=== PATIENT | female | born 1945 | race Caucasian/White ===

== ENCOUNTER → 2017-04-25 15:08 | Outpatient (CLI) | payer MEDICARE, SELFPAY ==
[2017-04-25 17:48] LABS: Absolute Lymphocyte Count 2.64 X10^3/ul (0.83-4.51); Absolute Neutrophil Count 7.4 X10^3/uL (2.0-7.7); Basophil# 0.06 X10^3/uL; Basophil% 0.5 % (0-1); Eosinophil# 0.18 X10^3/uL; Eosinophils% 1.6 % (0-5); Hematocrit 49.8 % (37-47); Hemoglobin 16.9 g/dl (12.0-15.0); Lymphocyte # 2.64 X10^3/ul (4.0); Lymphocyte % 24.2 % (19-41); Mean Corp Hgb Conc 33.9 g/gl (32-36); Mean Corpuscular Hgb 30.5 pg (27.0-32.0); Mean Corpuscular Volume 89.7 fL (81-99); Mean Platelet Vol. 11.6 fl (6.2-12.0); Monocyte# 0.66 X10^3/uL; Neutrophil # 7.35 X10^3/uL (2.7-7.7); Neutrophil % 67.4 % (47-70); Platelet Count 265 K/mm3 (150-450); RBC Distribution Width CV 12.8 % (11.6-14.6); RBC Distribution Width SD 42.1 fl (35.1-43.9); Red Blood Count 5.55 M/mm3 (4.2-5.4); White Blood Count 10.9 K/mm3 (4.4-11.0)
[2017-04-25 17:57] LABS: POSITIVE COUNT NO; POSITIVE DIFFERENTIAL NO; POSITIVE MORPHOLOGY NO
[2017-04-25 18:06] LABS: ALB/GLOB Ratio 0.9 RATIO (0.9-2.4); AST(SGOT) 16 U/L (15-37); Alanine Aminotransfer ALT/SGPT 20 U/L (13-56); Albumin, Serum 3.7 g/dL (3.2-5.0); Alkaline Phosphatase 63 U/L (45-117); Anion Gap 10 (5-15); BUN 22 mg/dL (7-18); BUN/Creat Ratio 26.3 RATIO (10-20); Calcium,Total 9.7 mg/dL (8.5-10.1); Chloride 104 mmol/L (98-107); Creatinine, Serum 0.84 mg/dL (0.55-1.02); EST Glomerular Filtration Rate 71 mL/min (>60); Est Glom Filt Rate - Afr Amer 86 mL/min (>60); Glucose 94 mg/dL (74-106); Potassium 3.1 mmol/L (3.5-5.1); Protein, Total 7.7 g/dL (6.4-8.2); Sodium Level 141 mmol/L (136-145); Thyroid Stim Hormone (TSH) 0.61 uIU/mL (0.358-3.74)
== END ==
PROVIDERS: Family Provider Family Medicine; PCP Family Medicine; Visit Provider Family Medicine
DX: I10 Essential (primary) hypertension (principal); E87.6 Hypokalemia
CPT/HCPCS: 36415; 80053; 84443; 85025

== ENCOUNTER → 2017-06-06 14:23 | Outpatient (CLI) | payer MEDICARE, SELFPAY ==
[2017-06-06 18:25] LABS: Anion Gap 8 (5-15); BUN 18 mg/dL (7-18); BUN/Creat Ratio 25.1 RATIO (10-20); Calcium,Total 9.5 mg/dL (8.5-10.1); Chloride 103 mmol/L (98-107); Creatinine, Serum 0.72 mg/dL (0.55-1.02); EST Glomerular Filtration Rate 86 mL/min (>60); Est Glom Filt Rate - Afr Amer 104 mL/min (>60); Glucose 85 mg/dL (74-106); Potassium 3.3 mmol/L (3.5-5.1); Sodium Level 140 mmol/L (136-145)
[2017-06-06 19:14] LABS: Absolute Lymphocyte Count 2.85 X10^3/ul (0.83-4.51); Absolute Neutrophil Count 5.6 X10^3/uL (2.0-7.7); Basophil# 0.04 X10^3/uL; Basophil% 0.4 % (0-1); Eosinophil# 0.16 X10^3/uL; Eosinophils% 1.7 % (0-5); Hematocrit 50.3 % (37-47); Hemoglobin 16.5 g/dl (12.0-15.0); Lymphocyte # 2.85 X10^3/ul (4.0); Lymphocyte % 30.7 % (19-41); Mean Corp Hgb Conc 32.8 g/gl (32-36); Mean Corpuscular Hgb 30.1 pg (27.0-32.0); Mean Corpuscular Volume 91.8 fL (81-99); Mean Platelet Vol. 11.3 fl (6.2-12.0); Monocyte# 0.66 X10^3/uL; Monocyte% 7.1 % (0-10); Neutrophil # 5.55 X10^3/uL (2.7-7.7); Neutrophil % 59.9 % (47-70); Platelet Count 272 K/mm3 (150-450); RBC Distribution Width CV 13.3 % (11.6-14.6); RBC Distribution Width SD 44.2 fl (35.1-43.9); Red Blood Count 5.48 M/mm3 (4.2-5.4); White Blood Count 9.3 K/mm3 (4.4-11.0)
[2017-06-06 19:25] LABS: POSITIVE COUNT NO; POSITIVE DIFFERENTIAL NO; POSITIVE MORPHOLOGY NO
[2017-06-07 10:03] LABS: Magnesium 1.9 mg/dL (1.6-2.6)
== END ==
PROVIDERS: Family Provider Family Medicine; PCP Family Medicine; Visit Provider Family Medicine
DX: E87.6 Hypokalemia (principal); I10 Essential (primary) hypertension; D75.1 Secondary polycythemia
CPT/HCPCS: 36415; 80048; 83735; 85025

== ENCOUNTER 2017-06-17 08:35 | Day surgery (SDC) | payer MEDICARE, SELFPAY ==
--- NOTE | 2017-06-17 | COLBX_PTH ---
PATIENT: ALY OLSON LOC: EN U#:[id number] AGE/SX: 71/F ROOM: RE06/17/[address]: Dr. Emmett Mckeon MD : 1945 BED: DIS: 06/17/2017 SPEC #: [id number] RECD: 06/17/17 14:31 STATUS: FARRAH CHILO #: [id number] DANNY: 06/17/17 00:[address]: Emmett Mckeon DEPT: SURGICAL PATHOLOGY RECD BY: Tyron Gusman ENTERED: 06/17/17 14:32 SP TYPE: COLON BX OTHR DR: Dr. Chance Desouza MD Tissues: Sigmoid colon biopsy Procedures: Surgery Specimen Level IV HEADER OPERATION: Colonoscopy PRE-OP DIAGNOSIS: Screening TISSUE SUBMITTED: Random polyp biopsies sigmoid and rectum MICROSCOPIC DIAGNOSIS Sigmoid and rectal polyps, biopsy: Fragments of hyperplastic polyp. AM:andra 06/20/17 MICROSCOPIC DESCRIPTION Slides are reviewed. GROSS DESCRIPTION Received in fixative is one container labeled with the patient's name and designated random polyp biopsy, sigmoid and rectum. The specimen consists of two irregular fragments of light pedraza soft tissue that in aggregate measure 0.5 x 0.3 x 0.1 cm. The specimen is totally submitted in one cassette. / SJ:andra 06/17/17 TC:5 CPT: 36255
[2017-06-17 09:05] VITALS: BP 139/84; PULSE 78; RESP 18; TEMP 36.6; O2SAT 97; BMI 29.7
--- NOTE | 2017-06-17 10:34 | HP.PCM_ITS ---
Past Medical/Surgical History - Planned Operation Planned Operative Procedure/s: COLONOSCOPY Date of Operative Procedure: 06/17/17 Permit Signed: No S.O.S: No - Previous Hospitalizations/Surgeries HX Hospitalizations: Yes HX of Surgeries: HYSTERECTOMY. FOREIGN OBJECT REMOVED FROM LEG CHILD. CARPAL TUNNEL MOO. VAGINAL CHILDBIRTH X 1 Any Problems With Anesthesia: No You/Your Family Experience Fever (Hyperthermia) With Anes: No Cholinesterase deficiency: No - Cardiovascular Hx Chest Pain within Last 2 months: No Hx of Irregular Heartbeat and/or Afib: No Hx Heart Attack: No Hx Congestive Heart Failure: No Hx Rheumatic Fever: No Hx Hypertension: Yes - DX 90'S ON MEDS Hx Internal Defibrillator: No Hx Pacemaker: No Hx Cardiac Catheterization: No Hx Cardiac Surgery/Stents/Etc.: No Hx Stress Test: No HX Edema: No Hx Pain in Legs when Walking/Leg Cramps: No - Respiratory Chronic Cough: No HX of Shortness of Breath: No Hoarseness: No Hx Chronic Obstructive Pulmonary Disease (COPD): No Hx Asthma: No Hx Emphysema: No Hx Sleep Apnea: No CPAP: No BIPAP: No Hx Respiratory Tract Infection/Cold (presently): No Do You Snore Loudly (louder than talking or can be heard): Yes Do You Often Feel Tired/ Fatigued/ Sleepy Dring Daytime?: Yes Has Anyone Observed You Stop Breathing During Sleep?: No Result (for STOP score): Positive Hx Smoking: Yes - 1/2PPD Smoking Status: Current every day smoker - Gastrointestinal Hx Gastroesophageal Reflux: Yes - OCCASIONAL, TAKES TUMS PRN Controlled With Meds: No Hx Gastrointestinal Disorders: No Hx Gastrointestinal Bleed: No Hx Ulcer: No Hx Hiatal Hernia: No Difficulty Chewing/Swallowing: No Recent Onset of Swallowing Problems: No Special diet followed at home: No Hx Unplanned Weight Loss of 20#: No HX Unplanned Weight Gain of 20#: No - Neurological Hx Seizures: No HX Syncope/Blackout Spells/Unconsciousness: No Hx CVA/Stroke: No Hx Transient Ischemic Attacks (TIA): No Hx Multiple Sclerosis: No Hx Parkinson's Disease: No Hx Head/Neck Injury: Yes - OCCASINAL NECK PAIN Hx Headaches: No Hx Back Injury/Pain: Yes - OCC LOWER BACK PAIN Recent Onset of Speech Difficulty: No Restless Legs: No Does patient have nerve stimulator: No Patient instructed to have device shut off: No Rep notified?: No - Blood Disorder Hx Leukemia: No Bleeding Tendencies: No Hx Deep Vein Thrombosis: No Hx High Cholesterol: Yes - DOESN' T TOLERATE STATINS Blood Transmitted Disease: No Hx Hepatitis: No Hx Cirrhosis: No Hx Anemia: No Hx Blood Disorders: No - Reproduction : No Is Patient Lactating: No Hx Hysterectomy: Yes Hx Tubal Ligation: No Are You Post Menopause: Yes - Genitourinary Hx Renal Disease: No - Musculoskeletal Hx Arthritis: Yes Hx Rheumatoid Arthritis: No Hx Gout: No Recent Onset of an Orthopedic Problem: No - Endocrine Hx Diabetes: No Thyroid Disease: No Hx Steroid Therapy: Yes - UNCERTAIN TIME - Psycho/Social Hx Substance Use: No Hx Alcohol Use: No Hx Anxiety: Yes - ON MED Hx Depression: Yes Mental Illness: No Hx Dementia: No - Miscellaneous Hx Cancer: Yes - BREAST 2013 Recent Exposure to Contagious Disease: No Active MRSA: No Hx of C-Diff: No Any Loose Teeth: No Allergies doxycycline calcium [From Vibramycin] Allergy (Verified 03/26/13 14:20) HEART FLUTTERS doxycycline monohydrate [From Vibramycin] Allergy (Verified 03/26/13 14:20) Other atorvastatin calcium [From Lipitor] Adverse Reaction (Verified 03/26/13 14:20) WEAK MUSCLES fluvastatin sodium [From Lescol] Adverse Reaction (Verified 03/26/13 14:20) WEAK MUSCLES metoprolol Adverse Reaction (Verified 03/26/13 14:20) DOESN'T WORK simvastatin [From Zocor] Adverse Reaction (Verified 03/26/13 14:20) MUSLCE WEAKNESS DUST Allergy (Uncoded 03/26/13 14:20) SNEEZE WHEEZE ENVIRONMENTAL Allergy (Uncoded 03/26/13 14:20) SNEEZE WHEEZE MOLD Allergy (Uncoded 03/26/13 14:20) SNEEZE WHEEZE TREES Allergy (Uncoded 03/26/13 14:20) SNEEZE WHEAT Home Medications Medication Instructions Recorded Paroxetine HCl 20 mg PO QHS 02/19/13 Potassium Chloride [K-Dur] 20 meq PO DAILY 02/19/13 Triamterene/Hydrochlorothiazid 1 tab PO DAILY 02/19/13 [Triamterene-Hctz 37.5-25 mg Cp] Calcium Carbonate [Tums] 500 mg PO DAILY PRN PRN 03/26/13 Aspirin [Aspirin, Baby] 81 mg PO DAILY@0800 06/14/17 buPROPion SR [Wellbutrin SR (150mg 150 mg PO BID 06/14/17 tablets)] - Discharge Is Pt Admitted From a Half-Way, or a Custodial: No Who Depends On You At Home: LIVES ALONE After D/C, Where Do you Plan to Go: Return Home - From the PAT History Number of Risk Factors: 4 - Physical Exam General: Alert, Oriented x3, Cooperative Lungs: Normal air movement Cardiovascular: Regular rate, Regular Rhythm Abdomen: Soft, Non Tender, Non-Distended Vital Signs Temp Pulse Resp BP Pulse Ox 98 F 78 18 139/84 H 97 06/17/17 09:05 06/17/17 09:05 06/17/17 09:05 06/17/17 09:05 06/17/17 09:05 Oxygen Delivery Method Room Air Weight: 173 lb 8.061 oz Body Mass Index (BMI) 29.7 Assessment/Plan 71-year-old female screening colonoscopy 1. The patient reports that her last colonoscopy was [address] Mccauley. She reports that he did find a polyp at that time and recommended repeat colonoscopy in 3 years. She is not having any abdominal pain or blood in her stool this time. No inadvertent weight loss. She has no family history of colon cancer. 2. I explained endoscopy in detail to the patient. I explained the risks including but not limited to stroke or heart attack with anesthesia, perforation of the GI tract, bleeding, infection. I explained that any of these could necessitate further emergency surgery. The patient understands and all questions were answered sufficiently. The patient wishes to proceed with procedure. Emmett Mckeon MD Pager: [facility] [address] [place] [address], [address] [place] [address] Office: Surgery Risks - Colonoscopy Risks Include but are not Limited To: Risks include but are not limited to: Bleeding, perforation requiring further surgery, inability to complete colonoscopy requiring barium enema.
[2017-06-17 11:11] VITALS: BP 119/56; BP 139/84; PULSE 63; RESP 14; TEMP 36.3; O2SAT 93
--- NOTE | 2017-06-17 11:13 | PCM.OPRPT ---
Problem List (1) History of colon polyps Status: Acute Report of Operation Date of Procedure: 06/17/17 Pre-Operative Diagnosis: Personal history of colon polyp Post-Operative Diagnosis: Multiple polyps in the sigmoid and rectum Surgery/Procedure Performed:: Colonoscopy with biopsies Description of Surgical Findings:: The patient had multiple hyperplastic appearing polyps in the sigmoid and rectum. These number over 20 but not over 100. Specimen's removed: Biopsies of several the sigmoid and rectal polyps Description of Procedure: The major risks and benefits associated with the procedure were explained to the patient in detail. The patient verbalized understanding and agreement with the same. The patient was brought to the endoscopy suite. After adequate sedation was achieved, the patient was placed in the left lateral decubitus position and a digital rectal exam was performed. This examination was within normal limits. A well-lubricated colonoscope was then inserted into the rectum and advanced under direct visualization to the level of the cecum. The bowel prep was good. The cecum was identified by both visual and anatomic landmarks. A photograph was taken of the end of the cecum. The scope was then fully withdrawn while examining the color, texture, anatomy and integrity of the mucosa from the cecum to the anal canal. The findings were consistent with normal colonic mucosa in the proximal colon. In the sigmoid and rectum there were multiple hyperplastic appearing polyps. There were easily over 20 polyps in the section of the colon. I do not believe that they numbered over 100. Several polyps were biopsied with cold forceps and sent for pathology. These polyps all appeared similar in size and appearance. None of them stuck out as larger or more malignant-looking than the rest. Over 6 minutes were taken to examine the colonic mucosa. Upon reaching the rectum the scope was retroflexed to examine the distal rectal vault. There were also polyps in the distal rectum. The scope was then straightened and was completely retrieved upon exiting the anal canal and the procedure was terminated. The patient was then transferred to the recovery room in stable condition. Recommendations for follow up: Dependent on pathology but no more than 1 year. I will get her records from Dr. Mccauley, but I am concerned for a variant of FAP due to the amount of hyperplastic polyps in the sigmoid and rectum.
[2017-06-17 11:16] VITALS: BP 112/60; BP 139/84; PULSE 63; RESP 16; O2SAT 92
[2017-06-17 11:20] VITALS: BP 114/65; BP 139/84; PULSE 62; RESP 16; O2SAT 96
[2017-06-17 11:30] VITALS: BP 137/64; BP 139/84; PULSE 63; RESP 16; TEMP 36.5; O2SAT 94
[2017-06-17 11:57] VITALS: BP 139/84
== END 2017-06-17 12:24 | disposition home or self-care (01) ==
LOC: EN 08:36 → AC 08:38
PROVIDERS: Family Provider Family Medicine; PCP Family Medicine; Visit Provider Surgery
PROC: 0DJD8ZZ Inspection of Lower Intestinal Tract, Via Natural or Artificial Opening Endoscopic (ICD-10-PCS; CPT 45378; principal; 2017-06-17 09:55)
DX: K62.1 Rectal polyp (principal); K63.5 Polyp of colon; I10 Essential (primary) hypertension; F41.9 Anxiety disorder, unspecified; F17.210 Nicotine dependence, cigarettes, uncomplicated; Z85.3 Personal history of malignant neoplasm of breast; Z79.899 Other long term (current) drug therapy; Z79.82 Long term (current) use of aspirin; Z86.010 Personal history of colon polyps
CPT/HCPCS: 45380; 88305; J7120

== ENCOUNTER → 2017-07-22 14:24 | Outpatient (CLI) | payer MEDICARE, SELFPAY ==
[2017-07-22 15:56] LABS: Anion Gap 9 (5-15); BUN 17 mg/dL (7-18); BUN/Creat Ratio 16.5 RATIO (10-20); Calcium,Total 9.8 mg/dL (8.5-10.1); Chloride 103 mmol/L (98-107); Creatinine, Serum 1.03 mg/dL (0.55-1.02); EST Glomerular Filtration Rate 56 mL/min (>60); Est Glom Filt Rate - Afr Amer 68 mL/min (>60); Glucose 91 mg/dL (74-106); Potassium 3.3 mmol/L (3.5-5.1); Sodium Level 141 mmol/L (136-145)
== END ==
PROVIDERS: Visit Provider Family Medicine
DX: E87.6 Hypokalemia (principal)
CPT/HCPCS: 36415; 80048

== ENCOUNTER → 2018-07-03 14:40 | Outpatient (CLI) | payer MEDICARE, SELFPAY ==
[2018-07-03 17:54] LABS: Absolute Lymphocyte Count 2.81 X10^3/ul (0.83-4.51); Absolute Neutrophil Count 5.5 X10^3/uL (2.0-7.7); Basophil# 0.03 X10^3/uL; Basophil% 0.3 % (0-1); Eosinophil# 0.18 X10^3/uL; Eosinophils% 1.9 % (0-5); Hematocrit 48.7 % (37-47); Hemoglobin 16.4 g/dl (12.0-15.0); Lymphocyte # 2.81 X10^3/ul (4.0); Lymphocyte % 30.3 % (19-41); Mean Corp Hgb Conc 33.7 g/gl (32-36); Mean Corpuscular Hgb 29.8 pg (27.0-32.0); Mean Corpuscular Volume 88.4 fL (81-99); Mean Platelet Vol. 11.8 fl (6.2-12.0); Monocyte# 0.69 X10^3/uL; Monocyte% 7.5 % (0-10); Neutrophil # 5.52 X10^3/uL (2.7-7.7); Neutrophil % 59.7 % (47-70); Platelet Count 264 K/mm3 (150-450); RBC Distribution Width CV 13.6 % (11.6-14.6); RBC Distribution Width SD 43.7 fl (35.1-43.9); Red Blood Count 5.51 M/mm3 (4.2-5.4); White Blood Count 9.3 K/mm3 (4.4-11.0)
[2018-07-03 17:55] LABS: POSITIVE COUNT NO; POSITIVE DIFFERENTIAL NO; POSITIVE MORPHOLOGY NO
[2018-07-03 18:28] LABS: ALB/GLOB Ratio 1.1 RATIO (0.9-2.4); AST(SGOT) 21 U/L (15-37); Alanine Aminotransfer ALT/SGPT 22 U/L (13-56); Albumin, Serum 3.9 g/dL (3.2-5.0); Alkaline Phosphatase 68 U/L (45-117); Anion Gap 11 (5-15); BUN 17 mg/dL (7-18); BUN/Creat Ratio 22.1 RATIO (10-20); Calcium,Total 9.6 mg/dL (8.5-10.1); Chloride 104 mmol/L (98-107); Cholesterol 267 mg/dL (200); Creatinine, Serum 0.77 mg/dL (0.55-1.02); EST Glomerular Filtration Rate 78 mL/min (>60); Est Glom Filt Rate - Afr Amer 95 mL/min (>60); Globulin 3.7 g/dL (2.2-4.2); Glucose 93 mg/dL (74-106); High Density Lipoprotein 38 mg/dL; Potassium 3.1 mmol/L (3.5-5.1); Protein, Total 7.6 g/dL (6.4-8.2); Sodium Level 140 mmol/L (136-145); T4 Free Direct 1.14 ng/dL (0.76-1.46); Thyroid Stim Hormone (TSH) 0.73 uIU/mL (0.358-3.74); Triglycerides 218 mg/dL; Very Low Density Lipoprotein 44 mg/dL (5-40)
== END ==
PROVIDERS: Family Provider Family Medicine; PCP Family Medicine; Visit Provider Family Medicine
DX: F32.9 Major depressive disorder, single episode, unspecified (principal); I10 Essential (primary) hypertension; R53.83 Other fatigue
CPT/HCPCS: 36415; 80053; 80061; 84439; 84443; 85025

== ENCOUNTER → 2018-09-08 15:01 | Outpatient (CLI) | payer MEDICARE, SELFPAY ==
--- NOTE | 2018-09-08 15:15 | BI_ITS ---
MAMMOGRAPHY - UNILATERAL SCREENING: LEFT BREAST REASON FOR EXAM: Female, 72 years old. Routine annual screening examination (unilateral). PERTINENT HISTORY: Personal history of breast cancer. Prior right mastectomy. TECHNIQUE: Digital unilateral breast sergio (3D mammographic acquisition) in the CC and MLO projections. 2-D mediolateral oblique (MLO) and craniocaudad (CC) views of both breasts were obtained. CAD: Full Field Digital Mammography with Computer Added Detection was performed. COMPARISON: Comparison is made with prior examination dated May 12, 2016. FINDINGS: Breast Composition: There are scattered areas of fibroglandular density. There are no dominant masses or suspicious calcifications. Stable appearance of the left axillary lymph nodes. No other significant abnormalities are identified. There has been no significant change since the prior study. BI/SCREEN MAMM (CAD) W/SERGIO UNI L IMPRESSION: Stable unilateral screening mammogram. Yearly follow-up mammogram recommended. (A) ASSESSMENT CATEGORY: Approximately 10% of breast cancers are not detected by mammography. A normal mammogram should not delay biopsy of a clinically suspicious abnormality. [id number] Electronically Signed: Ashok Roblero, at 8:13 EDT , Service support ,
== END ==
PROVIDERS: Family Provider Family Medicine; PCP Family Medicine; Referring Provider Family Medicine
DX: Z12.31 Encounter for screening mammogram for malignant neoplasm of breast (principal); Z85.3 Personal history of malignant neoplasm of breast; Z90.11 Acquired absence of right breast and nipple
CPT/HCPCS: 77061; 77067; G0279

== ENCOUNTER 2018-09-21 06:28 | Day surgery (SDC) | payer MEDICARE, SELFPAY ==
[2018-09-21 06:49] VITALS: BP 133/55; PULSE 78; RESP 18; TEMP 36.7; O2SAT 98; BMI 30.7
--- NOTE | 2018-09-21 07:23 | H&P.OPEN ---
History of Present Illness Date of Admission: 09/21/18 The patient is a 72 year old F here for surveillance colonoscopy. The patient had a colonoscopy a little over a year ago and over 20 hyperplastic polyps were found in the sigmoid and rectum. Several of these were biopsied and came back as hyperplastic polyps. She does not note any abdominal pain or blood in her stool. Past Medical/Surgical History - Planned Operation Planned Operative Procedure/s: cscope open access Date of Operative Procedure: 09/21/18 Permit Signed: No S.O.S: No Is This Patient Having a Total Joint: No - Previous Hospitalizations/Surgeries HX Hospitalizations: No HX of Surgeries: HYSTERECTOMY. FOREIGN OBJECT REMOVED FROM LEG CHILD. CARPAL TUNNEL MOO. VAGINAL CHILDBIRTH X 1. right mastectomy. cscope 2018. cataract right Any Problems With Anesthesia: Yes - woke up during cscope in the past You/Your Family Experience Fever (Hyperthermia) With Anes: No Cholinesterase deficiency: No - Cardiovascular Hx Chest Pain within Last 2 months: No Hx of Irregular Heartbeat and/or Afib: No Hx Heart Attack: No Hx Congestive Heart Failure: No Hx Rheumatic Fever: No Hx Hypertension: Yes - controlled with med Hx Internal Defibrillator: No Hx Pacemaker: No Hx Cardiac Catheterization: No Hx Cardiac Surgery/Stents/Etc.: No Hx Stress Test: No HX Edema: No Hx Pain in Legs when Walking/Leg Cramps: Yes - left leg pain/cramps prn - Respiratory Chronic Cough: No HX of Shortness of Breath: No Hoarseness: No Hx Chronic Obstructive Pulmonary Disease (COPD): No Hx Asthma: No Hx Emphysema: No Hx Sleep Apnea: No CPAP: No BIPAP: No Hx Oxygen Use at Home: No Hx Respiratory Tract Infection/Cold (presently): No Do You Snore Loudly (louder than talking or can be heard): No Do You Often Feel Tired/ Fatigued/ Sleepy Dring Daytime?: No Has Anyone Observed You Stop Breathing During Sleep?: No Result (for STOP score): Negative Hx Smoking: Yes - 1/2PPD Smoking Status: Current every day smoker - Gastrointestinal Hx Gastroesophageal Reflux: Yes - OCCASIONAL, TAKES TUMS PRN Controlled With Meds: No Hx Gastrointestinal Disorders: No Hx Gastrointestinal Bleed: No Hx Ulcer: No Hx Hiatal Hernia: No Difficulty Chewing/Swallowing: No Recent Onset of Swallowing Problems: No Special diet followed at home: No Hx Unplanned Weight Loss of 20#: No HX Unplanned Weight Gain of 20#: No - Neurological Hx Seizures: No HX Syncope/Blackout Spells/Unconsciousness: No Hx CVA/Stroke: No - eye stroke right eye Hx Transient Ischemic Attacks (TIA): No Hx Multiple Sclerosis: No Hx Parkinson's Disease: No Hx Head/Neck Injury: Yes - chronic neck pain/fibromyalgia Hx Headaches: No Hx Back Injury/Pain: Yes - back pain from fall 1 yr ago Recent Onset of Speech Difficulty: No Restless Legs: No Does patient have nerve stimulator: No Patient instructed to have device shut off: No Rep notified?: No - Blood Disorder Hx Leukemia: No Bleeding Tendencies: No Hx Deep Vein Thrombosis: No Hx High Cholesterol: Yes - in the past Blood Transmitted Disease: No Hx Hepatitis: No Hx Cirrhosis: No Hx Anemia: No Hx Blood Disorders: No - Reproduction Is Patient Lactating: No Hx Hysterectomy: Yes Hx Tubal Ligation: No Are You Post Menopause: Yes - Genitourinary Hx Renal Disease: No - kidney stone/incontinence - Musculoskeletal Hx Arthritis: Yes Hx Rheumatoid Arthritis: No Hx Gout: No Recent Onset of an Orthopedic Problem: No - Endocrine Hx Diabetes: No Thyroid Disease: No Hx Steroid Therapy: No - . - Psycho/Social Hx Substance Use: No Hx Alcohol Use: No Hx Anxiety: Yes - ON MED Hx Depression: Yes - on med Mental Illness: No Hx Dementia: No - Miscellaneous Hx Cancer: Yes - breast/mastectomy Recent Exposure to Contagious Disease: No Active MRSA: No Hx of C-Diff: No Any Loose Teeth: No Allergies doxycycline calcium [From Vibramycin] Allergy (Verified 09/20/18 10:39) HEART FLUTTERS doxycycline monohydrate [From Vibramycin] Allergy (Verified 09/20/18 10:39) Other atorvastatin calcium [From Lipitor] Adverse Reaction (Verified 09/20/18 10:39) WEAK MUSCLES fluvastatin sodium [From Lescol] Adverse Reaction (Verified 09/20/18 10:39) WEAK MUSCLES metoprolol Adverse Reaction (Verified 09/20/18 10:39) DOESN'T WORK simvastatin [From Zocor] Adverse Reaction (Verified 09/20/18 10:39) MUSLCE WEAKNESS DUST Allergy (Uncoded 09/20/18 10:39) SNEEZE WHEEZE ENVIRONMENTAL Allergy (Uncoded 09/20/18 10:39) SNEEZE WHEEZE MOLD Allergy (Uncoded 09/20/18 10:39) SNEEZE WHEEZE TREES Allergy (Uncoded 09/20/18 10:39) SNEEZE WHEAT - Discharge Is Pt Admitted From a Care Home, or a Long Term: No Who Could Help: family After D/C, Where Do you Plan to Go: Return Home - From the PAT History Number of Risk Factors: 5 - Physical Exam General: Alert, Oriented x3 Lungs: Normal air movement Cardiovascular: Regular rate, Regular Rhythm Abdomen: Soft, Non Tender, Non-Distended Vital Signs Temp Pulse Resp BP Pulse Ox 98.0 F 78 18 133/55 H 98 09/21/18 06:49 09/21/18 06:49 09/21/18 06:49 09/21/18 06:49 09/21/18 06:49 Oxygen Delivery Method Room Air Weight: 173 lb 8.061 oz Body Mass Index (BMI) 30.7 Assessment/Plan All Active Problems History of colon polyps (Acute) 72-year-old female with multiple rectum and sigmoid polyps 1. There was concern for a variant of FAP as the patient had over 20 polyps in her sigmoid and rectum. Was recommended that she repeat colonoscopy in a year in accordance to FAP guidelines. Her biopsies a year ago came back as hyperplastic polyps. 2. I explained endoscopy in detail to the patient. I explained the risks including but not limited to stroke or heart attack with anesthesia, perforation of the GI tract, bleeding, infection. I explained that any of these could necessitate further emergency surgery. The patient understands and all questions were answered sufficiently. The patient wishes to proceed with procedure. Emmett Mckeon MD Pager: [facility] [address] [place] [address], [address] [place] [address] Office: Surgery Risks - Colonoscopy Risks Include but are not Limited To: Risks include but are not limited to: Bleeding, perforation requiring further surgery, inability to complete colonoscopy requiring barium enema.
--- NOTE | 2018-09-21 07:30 | COLBX_PTH ---
PATIENT: ALY OLSON LOC: EN U#:[id number] AGE/SX: 72/F ROOM: RE09/21/[address]: Dr. Emmett Mckeon MD : 1945 BED: DIS: 09/21/2018 SPEC #: [id number] RECD: 09/21/18 08:25 STATUS: FARRAH CHILO #: [id number] DANNY: 09/21/18 07:[address]: Emmett Mckeon DEPT: SURGICAL PATHOLOGY RECD BY: Angel Boone ENTERED: 09/21/18 10:47 SP TYPE: COLON BX OTHR DR: Dr. Chance Desouza MD Tissues: Descending colon Procedures: Surgery Specimen Level IV HEADER OPERATION: Colonoscopy - open access (MAC) PRE-OP DIAGNOSIS: History of colon polyps TISSUE SUBMITTED: Descending colon polyp MICROSCOPIC DIAGNOSIS Descending colon polyp, biopsy: Hyperplastic polyp. AM:andra 09/22/18 MICROSCOPIC DESCRIPTION Slides are reviewed. GROSS DESCRIPTION Received in fixative is one container labeled with the patient's name and designated descending colon polyp. The specimen consists of one irregular fragment of light pedraza soft tissue that measures 0.4 x 0.3 x 0.1 cm. Multiple fragments of fecal material are also noted. The specimen is totally submitted in one cassette. / SJ:andra 09/21/18 TC:5 CPT: 43609
[2018-09-21 08:01] VITALS: BP 131/68; BP 133/55; PULSE 61; RESP 16; TEMP 36.3; O2SAT 96
--- NOTE | 2018-09-21 08:01 | OP.ENDO_ITS ---
09/21/2018 Chance Desouza Re : Colonoscopy procedure for Silvia Henry Dear Lyly This procedure was performed on August. My impressions and recommendations are as follows: Impressions : - One polyp in the rectum in the sigmoid colon in the descending colon, removed with a hot snare. Resected and retrieved. Recommendations : - Discharge patient to home. - Resume previous diet. - Continue present medications. - Resume aspirin at prior dose tomorrow. - Await pathology results. - Repeat colonoscopy in 5 years for surveillance of multiple polyps. My findings are described in the full procedure note, which is enclosed. If I can be of further assistance, please feel free to contact me at Doctor phone number(s): , Work: . Sincerely, Emmett Mckeon MD 09/21/2018 8:01:05 AM This report has been signed electronically.
[2018-09-21 08:05] VITALS: BP 133/55; BP 135/61; PULSE 63; RESP 16; O2SAT 94
[2018-09-21 08:11] VITALS: BP 133/55; BP 150/70; PULSE 67; RESP 16; O2SAT 95
[2018-09-21 08:18] VITALS: BP 133/55; BP 138/63; PULSE 65; RESP 16; TEMP 36.1; O2SAT 95
[2018-09-21 08:21] VITALS: BP 133/55
== END 2018-09-21 08:42 | disposition home or self-care (01) ==
LOC: EN 06:28 → AC 06:30
PROVIDERS: Family Provider Family Medicine; PCP Family Medicine; Referring Provider Family Medicine; Visit Provider Surgery
PROC: 0DJD8ZZ Inspection of Lower Intestinal Tract, Via Natural or Artificial Opening Endoscopic (ICD-10-PCS; CPT 45378; principal; 2018-09-21 07:25)
DX: Z12.11 Encounter for screening for malignant neoplasm of colon (principal); Z86.010 Personal history of colon polyps; K62.1 Rectal polyp; D12.5 Benign neoplasm of sigmoid colon; D12.4 Benign neoplasm of descending colon; F32.9 Major depressive disorder, single episode, unspecified; F41.9 Anxiety disorder, unspecified; E78.00 Pure hypercholesterolemia, unspecified; M79.7 Fibromyalgia; G89.29 Other chronic pain; F17.200 Nicotine dependence, unspecified, uncomplicated; I10 Essential (primary) hypertension; Z87.442 Personal history of urinary calculi
CPT/HCPCS: 45385; 88305; J7120

== ENCOUNTER → 2019-01-10 13:49 | Outpatient (CLI) | payer MEDICARE, SELFPAY ==
--- NOTE | 2019-01-10 14:16 | RAD_ITS ---
STUDY: X-RAY - LUMBAR SPINE REASON FOR EXAM: Female, 73 years old. Pain. TECHNIQUE: 5 view(s) of the lumbar spine were obtained. COMPARISON: None FINDINGS: Normal lumbar lordosis. There is no substantial scoliosis. There is minimal anterolisthesis of L4 on L5 (4.2 mm). There is multilevel endplate spondylosis of the lumbar vertebrae. There is mild, multi-level degenerative disc disease with multi-level disc space narrowing. There is no demonstrated fracture. There is no demonstrated spondylolysis of the pars interarticulares. Multilevel bilateral facet hypertrophic changes noted. There is atherosclerotic calcification of the abdominal aorta without a demonstrated aneurysm. RAD/L/S Spine Min 4 Views IMPRESSION: Multilevel spondylosis/degenerative disease with no acute fracture, spondylolisthesis or pars defect. Electronically Signed: Vivienne Headley MD at 1:30 EST , Service support ,
--- NOTE | 2019-01-10 14:16 | RAD_ITS ---
STUDY: X-RAY - THORACIC SPINE REASON FOR EXAM: Female, 73 years old. Pain. TECHNIQUE: 2 view(s) of the thoracic spine were obtained. COMPARISON: None. FINDINGS: Normal kyphosis of the thoracic spine. There is no substantial scoliosis. There is multilevel endplate spondylosis of the thoracic vertebrae. There is multilevel disc space narrowing of the thoracic spine. The soft tissue structures are unremarkable. RAD/Thoracic Spine 3 Views IMPRESSION: Spondylosis/degenerative disease with no acute fracture or subluxation. Electronically Signed: Vivienne Headley MD at 1:29 EST , Service support ,
[2019-01-10 15:37] LABS: Anion Gap 9 (5-15); BUN 14 mg/dL (7-18); BUN/Creat Ratio 15.7 RATIO (10-20); Calcium,Total 9.8 mg/dL (8.5-10.1); Chloride 102 mmol/L (98-107); Creatinine, Serum 0.89 mg/dL (0.55-1.02); EST Glomerular Filtration Rate 66 mL/min (>60); Est Glom Filt Rate - Afr Amer 80 mL/min (>60); Glucose 90 mg/dL (74-106); Magnesium 1.7 mg/dL (1.6-2.6); Potassium 2.9 mmol/L (3.5-5.1); Sodium Level 140 mmol/L (136-145)
== END ==
PROVIDERS: Family Provider Family Medicine; PCP Family Medicine; Referring Provider Family Medicine; Visit Provider Family Medicine
DX: E87.6 Hypokalemia (principal); M54.6 Pain in thoracic spine; M54.5 Low back pain
CPT/HCPCS: 36415; 72072; 72110; 80048; 83735

== ENCOUNTER → 2019-01-15 15:22 | Outpatient (CLI) | payer MEDICARE, SELFPAY ==
[2019-01-15 17:36] LABS: Anion Gap 5 (5-15); BUN 16 mg/dL (7-18); BUN/Creat Ratio 22.9 RATIO (10-20); Calcium,Total 9.3 mg/dL (8.5-10.1); Chloride 112 mmol/L (98-107); EST Glomerular Filtration Rate 88 mL/min (>60); Est Glom Filt Rate - Afr Amer 106 mL/min (>60); Glucose 77 mg/dL (74-106); Potassium 3.7 mmol/L (3.5-5.1); Sodium Level 143 mmol/L (136-145)
== END ==
PROVIDERS: Family Provider Family Medicine; PCP Family Medicine; Visit Provider Family Medicine
DX: I10 Essential (primary) hypertension (principal)
CPT/HCPCS: 36415; 80048

== ENCOUNTER → 2019-07-30 14:54 | Outpatient (CLI) | payer MEDICARE, SELFPAY ==
[2019-07-30 14:56] LABS: Bacteria 0 SEEN /hpf (None Seen); Mucous, Urine 0 SEEN /hpf (<or=2+)
[2019-07-30 16:24] LABS: Color, Urine Yellow (Yellow); Glucose, Dipstick Normal (Normal); Ketone-Dipstick Negative (Negative); Leukocyte Esterase-Dipstick 100 /ul (Negative); Nitrite-Dipstick Negative (Negative); Occult Blood-Urine 150 /ul (Negative); Protein-Dipstick 15 mg/dl (Negative); Specific Gravity, Urine 1.015 (1.002-1.030); Urine Bilirubin Dipstick Negative (Negative); Urine Clarity Sl. Cloudy (Clear); Urine Urobilinogen Normal (Normal); Urine pH 6.5 (5.0 - 8.0)
[2019-07-30 16:51] LABS: Red Blood Cells-Urine 10-25 SEEN /hpf (0-5); Squamous Epithelial Cells - UA 0-5 SEEN /hpf (5-10); White Blood Cells 25-50 SEEN /hpf (0-5)
== END ==
PROVIDERS: PCP Family Medicine; Visit Provider Family Medicine
DX: R30.0 Dysuria (principal)
CPT/HCPCS: 81001; 87077; 87086; 87088; 87186

== ENCOUNTER → 2020-01-14 10:44 | Outpatient (CLI) | payer MEDICARE, SELFPAY ==
[2020-01-14 12:36] LABS: Absolute Lymphocyte Count 2.21 X10^3/uL (0.83-4.51); Absolute Neutrophil Count 4.5 X10^3/uL (2.0-7.7); Basophil# 0.06 X10^3/uL; Basophil% 0.8 % (0-1); Eosinophil# 0.17 X10^3/uL; Eosinophils% 2.2 % (0-5); Hematocrit 46.8 % (37-47); Hemoglobin 15.4 g/dL (12.0-15.0); Lymphocyte # 2.21 X10^3/ul (4.0); Mean Corp Hgb Conc 32.9 g/dL (32-36); Mean Corpuscular Hgb 29.2 pg (27.0-32.0); Mean Corpuscular Volume 88.8 fL (81-99); Mean Platelet Vol. 11.1 fl (6.2-12.0); Monocyte# 0.65 X10^3/uL; Monocyte% 8.5 % (0-10); NRBC Flagged by Analyzer 0 % (0-5); Neutrophil # 4.49 X10^3/uL (2.7-7.7); Neutrophil % 59.1 % (47-70); Platelet Count 296 K/mm3 (150-450); RBC Distribution Width CV 12.8 % (11.6-14.6); RBC Distribution Width SD 41.4 fl (35.1-43.9); Red Blood Count 5.27 M/mm3 (4.2-5.4); White Blood Count 7.6 K/mm3 (4.4-11.0)
[2020-01-14 13:16] LABS: AST(SGOT) 14 U/L (15-37); Alanine Aminotransfer ALT/SGPT 18 U/L (13-56); Albumin, Serum 3.7 g/dL (3.2-5.0); Alkaline Phosphatase 95 U/L (45-117); Anion Gap 7 (5-15); BUN 16 mg/dL (7-18); BUN/Creat Ratio 21.9 RATIO (10-20); Calcium,Total 9.1 mg/dL (8.5-10.1); Chloride 107 mmol/L (98-107); Creatinine, Serum 0.73 mg/dL (0.55-1.02); EST Glomerular Filtration Rate 83 mL/min (>60); Est Glom Filt Rate - Afr Amer 100 mL/min (>60); Globulin 3.8 g/dL (2.2-4.2); Glucose 91 mg/dL (74-106); Potassium 3.5 mmol/L (3.5-5.1); Protein, Total 7.5 g/dL (6.4-8.2); Sodium Level 141 mmol/L (136-145); T4 Free Direct 1.12 ng/dL (0.76-1.46); Thyroid Stim Hormone (TSH) 0.75 uIU/mL (0.358-3.74)
== END ==
PROVIDERS: PCP Family Medicine; Visit Provider Family Medicine
DX: I10 Essential (primary) hypertension (principal); E87.6 Hypokalemia; M79.7 Fibromyalgia
CPT/HCPCS: 36415; 80053; 84439; 84443; 85025

== ENCOUNTER → 2020-05-13 10:16 | Outpatient (CLI) | payer MEDICARE, SELFPAY ==
--- NOTE | 2020-05-13 10:20 | RAD_ITS ---
STUDY: X-RAY - CERVICAL SPINE REASON FOR EXAM: Female, 74 years old. Radicular pain in the right arm TECHNIQUE: 5 view(s) of the cervical spine were obtained. COMPARISON: None FINDINGS: There are degenerative changes of the anterior atlantoaxial articulation. Normal odontoid process. There is straightening of the normal cervical lordosis. There is multi-level endplate spondylosis. There is multi-level degenerative disc disease with multilevel disc space narrowing. Normal visualized intervertebral neuroforamina. There is no evidence of acute fracture or loss of vertebral axial height.. There is maintenance of normal alignment The soft tissue structures are unremarkable. RAD/Cerv Spine 4 or 5 Views IMPRESSION: 1. Degenerative changes of the cervical spine without acute fracture or subluxation. 2. Straightened cervical lordosis. Muscular strain versus positional. Electronically Signed: Paco Key DO at 23:39 EDT Tel [phone], Service support ,
[2020-05-13 13:20] LABS: Hemoglobin A1c 5.4 % (3.8-5.6)
[2020-05-13 13:46] LABS: AST(SGOT) 22 U/L (15-37); Alanine Aminotransfer ALT/SGPT 28 U/L (13-56); Albumin, Serum 3.9 g/dL (3.2-5.0); Alkaline Phosphatase 97 U/L (45-117); Anion Gap 7 (5-15); BUN 11 mg/dL (7-18); CPK Total, Creatine Kinase 59 U/L (26-192); Calcium,Total 9.3 mg/dL (8.5-10.1); Chloride 107 mmol/L (98-107); Creatinine, Serum 0.79 mg/dL (0.55-1.02); EST Glomerular Filtration Rate 76 mL/min (>60); Est Glom Filt Rate - Afr Amer 92 mL/min (>60); Globulin 3.9 g/dL (2.2-4.2); Glucose 98 mg/dL (74-106); Potassium 3.1 mmol/L (3.5-5.1); Protein, Total 7.8 g/dL (6.4-8.2); Sodium Level 140 mmol/L (136-145); T4 Free Direct 1.18 ng/dL (0.76-1.46); Thyroid Stim Hormone (TSH) 1.08 uIU/mL (0.358-3.74)
== END ==
PROVIDERS: PCP Family Medicine; Referring Provider Family Medicine; Visit Provider Family Medicine
DX: I10 Essential (primary) hypertension (principal); E78.5 Hyperlipidemia, unspecified; E66.9 Obesity, unspecified; R73.01 Impaired fasting glucose; M54.12 Radiculopathy, cervical region
CPT/HCPCS: 36415; 72050; 80053; 82550; 83036; 84439; 84443

== ENCOUNTER → 2020-05-28 13:28 | Outpatient (CLI) | payer MEDICARE, SELFPAY ==
[2020-05-28 15:46] LABS: Anion Gap 3 (5-15); BUN 16 mg/dL (7-18); BUN/Creat Ratio 17.9 RATIO (10-20); Calcium,Total 9.3 mg/dL (8.5-10.1); Chloride 106 mmol/L (98-107); Creatinine, Serum 0.89 mg/dL (0.55-1.02); EST Glomerular Filtration Rate 66 mL/min (>60); Est Glom Filt Rate - Afr Amer 80 mL/min (>60); Glucose 177 mg/dL (74-106); Potassium 3.5 mmol/L (3.5-5.1); Sodium Level 139 mmol/L (136-145)
== END ==
PROVIDERS: PCP Family Medicine; Referring Provider Family Medicine; Visit Provider Family Medicine
DX: I10 Essential (primary) hypertension (principal)
CPT/HCPCS: 36415; 80048

== ENCOUNTER → 2020-09-30 17:43 | Outpatient (CLI) | payer MEDICARE, SELFPAY ==
[2020-09-30 19:17] LABS: Probe Check PASS; Specimen Processing Control PASS
== END ==
PROVIDERS: PCP Family Medicine; Visit Provider Family Medicine
DX: Z20.828 Contact with and (suspected) exposure to other viral communicable diseases (principal); R43.2 Parageusia
CPT/HCPCS: 87635; U0005; U0003

== ENCOUNTER 2021-06-01 14:08 | Outpatient (CLI) | payer MEDICARE, SELFPAY ==
--- NOTE | 2021-06-01 14:11 | BI_ITS ---
MAMMOGRAPHY - UNILATERAL SCREENING: LEFT BREAST REASON FOR EXAM: Female, 75 years old. Routine annual screening examination (unilateral). PERTINENT HISTORY: Personal history of breast cancer. Prior right mastectomy. TECHNIQUE: Digital unilateral breast sergio (3D mammographic acquisition) in the CC and MLO projections. 2-D mediolateral oblique (MLO) and craniocaudad (CC) views of both breasts were obtained. CAD: Full Field Digital Mammography with Computer Added Detection was performed. COMPARISON: Comparison is made with prior examination dated 09/08/2018. FINDINGS: Breast Composition: There are scattered areas of fibroglandular density. There are no dominant masses or suspicious calcifications. No other significant abnormalities are identified. There has been no significant change since the prior study. BI/SCREEN MAMM (CAD) W/SERGIO UNI L IMPRESSION: Stable unilateral screening mammogram. Yearly follow-up mammogram recommended. (A) ASSESSMENT CATEGORY: BIRADS Category 1: Negative. A letter regarding these results will be sent to the patient by the facility within 30 days. Approximately 10% of breast cancers are not detected by mammography. A normal mammogram should not delay biopsy of a clinically suspicious abnormality. [id number] Electronically Signed: Ashok Roblero MD at 15:25 EDT ,
== END 2021-06-01 23:59 | disposition home or self-care (01) ==
PROVIDERS: PCP Family Medicine; Visit Provider Family Medicine
DX: Z12.31 Encounter for screening mammogram for malignant neoplasm of breast (principal); Z85.3 Personal history of malignant neoplasm of breast; Z90.11 Acquired absence of right breast and nipple
CPT/HCPCS: 77063; 77067

== ENCOUNTER → 2022-04-13 | Outpatient (CLI) | payer MEDICARE, SELFPAY | END | disposition home or self-care (01) | LOC: LABSPEC 14:40 | PROVIDERS: PCP Family Medicine; Visit Provider Family Medicine | DX: N39.0 Urinary tract infection, site not specified (principal) | CPT/HCPCS: 87086; 87088; 87186 ==

== ENCOUNTER → 2022-06-09 | Outpatient (CLI) | payer MEDICARE, SELFPAY | END | disposition home or self-care (01) | PROVIDERS: PCP Family Medicine; Visit Provider Family Medicine | DX: N39.0 Urinary tract infection, site not specified (principal) | CPT/HCPCS: 87086 ==

== ENCOUNTER 2023-01-25 15:37 | Outpatient (CLI) | payer MEDICARE, SELFPAY ==
[2023-01-25 18:02] LABS: Vitamin D,25 Hydroxy 18.8 ng/mL
[2023-01-25 18:10] LABS: ALB/GLOB Ratio 0.9 RATIO (0.9-2.4); AST(SGOT) 16 U/L (15-37); Alanine Aminotransfer ALT/SGPT 24 U/L (13-56); Albumin, Serum 3.6 g/dL (3.2-5.0); Alkaline Phosphatase 87 U/L (45-117); Anion Gap 6 (5-15); BUN 13 mg/dL (7-18); BUN/Creat Ratio 15.3 RATIO (10-20); Calcium,Total 9.4 mg/dL (8.5-10.1); Chloride 107 mmol/L (98-107); Cholesterol 303 mg/dL (200); Creatinine, Serum 0.85 mg/dL (0.55-1.02); EST Glomerular Filtration Rate 69 mL/min (>60); Est Glom Filt Rate - Afr Amer 83 mL/min (>60); Glucose 94 mg/dL (74-106); High Density Lipoprotein 45 mg/dL; Protein, Total 7.6 g/dL (6.4-8.2); Sodium Level 140 mmol/L (136-145); Thyroid Stim Hormone (TSH) 0.69 uIU/mL (0.358-3.74); Triglycerides 181 mg/dL; Very Low Density Lipoprotein 36 mg/dL (5-40)
[2023-01-25 18:12] LABS: Hemoglobin A1c 5.7 % (3.8-5.6)
[2023-01-25 19:03] LABS: Microalbumin:Creatinine Ratio 893.8 mg/g CRE (<30 mg/g CRE)
== END 2023-01-25 23:59 | disposition home or self-care (01) ==
PROVIDERS: PCP Family Medicine; Referring Provider Family Medicine; Visit Provider Family Medicine
DX: I10 Essential (primary) hypertension (principal); E66.01 Morbid (severe) obesity due to excess calories; R73.01 Impaired fasting glucose; R35.0 Frequency of micturition; F32.9 Major depressive disorder, single episode, unspecified
CPT/HCPCS: 36415; 80053; 80061; 82043; 82306; 82570; 83036; 84443

== ENCOUNTER 2023-03-26 18:09 | Emergency (ER) | payer MEDICARE, SELFPAY ==
[2023-03-26 18:11] VITALS: BP 186/74; PULSE 83; RESP 16; TEMP 36.6; O2SAT 96; BMI 33.3
--- OUTSIDE RECORDS SUMMARY | 2023-03-26 18:29 | XMS RPT_ITS | CCD ---
Author Name Unknown Address [address] [place] [address] Organization [facility] Allergies Allergy Classification Reported Allergen(s) Allergy Type Date of Onset Reaction(s) Facility (1 source) amLODIPine; Translations: [AMLODIPINE BESYLATE] Drug Allergy 6 [facility] Repository (1 source) Angiotensin Converting Enzyme (Helder) Inhibitors; Translations: [HELDER INHIBITORS] Propensity to adverse reactions to drug (disorder) 6 [facility] Repository (1 source) atorvastatin; Translations: [ATORVASTATIN CALCIUM] Drug Allergy 6 [facility] Repository (1 source) Doxycycline; Translations: [DOXYCYCLINE CALCIUM] Drug Allergy 6 [facility] Repository (1 source) Dust; Translations: [DUST] Propensity to adverse reactions (disorder) 6 [facility] Repository (1 source) Erythromycin; Translations: [ERYTHROMYCIN] Drug Allergy 6 [facility] Repository (1 source) fluvastatin; Translations: [FLUVASTATIN SODIUM] Drug Allergy 6 [facility] Repository (1 source) Metoprolol; Translations: [METOPROLOL] Drug Allergy 6 [facility] Repository (1 source) Mold Extract; Translations: [MOLD] Drug Allergy 6 [facility] Repository (1 source) Simvastatin; Translations: [SIMVASTATIN] Drug Allergy 6 [facility] Repository (1 source) Tree; Translations: [TREES] Propensity to adverse reactions (disorder) 6 [facility] Repository (1 source) OTHER; Translations: [OTHER] Propensity to adverse reactions (disorder) 8 [facility] Repository (1 source) INFLUENZA VAC TYP A,B SURF ANT; Translations: [INFLUENZA VAC TYP A,B SURF ANT] Propensity to adverse reactions to drug (disorder) 6 [facility] Repository Results Test Name Value Interpretation Reference Range Facil ity Encounters Encounter Date Encounter Type Care Provider Facility Start: 03-10-2023 End: 03-10-2023 ambulatory Facility:[facility] Progress note 03-10-2023 Note Date & Type Note Facility 03-10-2023 Note HNO ID: [id number] Author: ERROL FERNÁNDEZ APRN.PARKING [employer] MANAGER Service: ? Author Type: Nurse Practitioner Type: Progress Notes Filed: 03/10/2023 13:54 Note Text: Subjective HPI Nontoxic-appearing female presents urgent care chief complaint possible sinus infection. Duration of symptoms 4 days. Associated symptoms sinus pressure drainage transient headache clogged ears. Presents today concerned about possible sinus infection. Has not used any OTC medications. No significant pain. Denies any fever body aches chills productive cough chest pain shortness of breath pleuritic pain hemoptysis nausea vomiting abdominal pain change in bowel or bladder habits. Past medical history prescription medication use and allergies reviewed. .Patient presents with: Sinus Problem: Sinus pain and pressure, nose dry x4 days, ears clogged PAST MEDICAL HISTORY Diagnosis Date Allergic rhinitis Anxiety Benign neoplasm of colon Breast cancer (HCC) 2012 right breast Essential hypertension, benign Fibromyalgia Other and unspecified hyperlipidemia Intolerant of statins PAST SURGICAL HISTORY Procedure Laterality Date COLSC FLX W/RMVL OF TUMOR POLYP LESION SNARE TQ 09/30/10 repeat in COLSC FLX W/RMVL OF TUMOR POLYP LESION SNARE TQ 07/10/13 multiple polyps - 3 year follow up MASTECTOMY, SIMPLE, COMPLETE 03/30/13 Right mastectomy, SLNBx NEUROPLASTY AND/TRANSPOS MEDIAN NRV CARPAL TUNNE 2003 Carpal tunnel decomp bilat TOTAL ABDOMINAL HYSTERECT W/WO RMVL TUBE OVARY 1999 Hysterectomy, TEODORO ALLERGIES Metoprolol; Helder Inhibitors; Dust; Erythromycin; Influenza Vac Typ A,B Surf Ant; Lescol [Fluvastatin Sodium]; Lipitor [Atorvastatin Calcium]; Mold; Norvasc [Amlodipine Besylate]; Trees; Vibramycin [Doxycycline Calcium]; and Zocor [Simvastatin] MEDICATIONS amLODIPine (NORVASC) 10 mg tablet Take 1 tablet by mouth every afternoon. PARoxetine (PAXIL) 10 mg tablet Take 10 mg by mouth once daily. aspirin, enteric coated (ASPIRIN, ENTERIC COATED) 81 mg EC tablet Take 81 mg by mouth once daily. potassium chloride ER (K-DUR, KLOR-CON) 20 mEq tablet Take 1 tablet by mouth twice daily. sod htjcy-ukbqpx-uykuyn bottle (NEILMED SINUS RINSE COMPLETE) pkdv Dissolve one packet or sachet in 8 oz (240 mL) or lukewarm distilled, previously boiled or bottled water. Use as directed per package instructions fluticasone (FLONASE ALLERGY RELIEF) 50 mcg/actuation nasal spray Use 1 Helena in each nostril once daily. PARoxetine (PAXIL) 20 mg tablet Take 1 tablet by mouth once daily. (Patient not taking: Reported on 03/10/2023) triamterene-hydrochlorothiazide 37.5-25 mg per capsule Take 1 capsule by mouth twice daily. (Patient not taking: Reported on 03/10/2023) mirabegron (MYRBETRIQ) 25 mg Tb24 Take 1 tablet by mouth once daily. (Patient not taking: Reported on 03/10/2023) IBUPROFEN (ADVIL ORAL) Take 1 capsule by mouth as needed. (Patient not taking: Reported on 03/10/2023) exemestane (AROMASIN) 25 mg tablet Take 1 tablet by mouth once daily. TAKE AFTER A MEAL. (Patient not taking: Reported on 02/03/2015) azelastine (ASTELIN,ASTEPRO) 0.1% nasal spray Use 1 Helena in each nostril twice daily. (Patient not taking: Reported on 03/10/2023) LORATADINE (CLARITIN ORAL) Take by mouth once daily. (Patient not taking: Reported on 03/10/2023) FAMILY HISTORY Problem Relation Age of Onset Cancer Father LARYNX Cancer Brother skin cancer Cancer Sister from brain cancer Hypertension Mother Cataract Other Blindness Other Diabetes Paternal Grandfather Diabetes Maternal Grandmother Cancer Brother kidney Cancer Maternal Grandmother kidney Social History Tobacco Use Smoking status: Every Day Packs/day: 0.50 Years: 49.00 Additional pack years: 0.00 Total pack years: 24.50 Types: Cigarettes Smokeless tobacco: Never Tobacco comments: Pt has cut back to 1/2 pack daily. Substance Use Topics Alcohol use: Yes Comment: occas Drug use: No BP 160/76 Pulse 90 Temp 36.9 ?C (98.4 ?F) Resp 18 Wt 86.6 kg (191 lb) SpO2 96% BMI 34.93 kg/m? Review of Systems Constitutional: Negative for chills, fever and malaise/fatigue. HENT: Positive for congestion, ear pain and sinus pain. Negative for ear discharge and sore throat. Eyes: Negative for blurred vision, pain, discharge and redness. Respiratory: Negative for cough, hemoptysis, sputum production, shortness of breath, wheezing and stridor. Cardiovascular: Negative for chest pain. Gastrointestinal: Negative for abdominal pain, diarrhea, nausea and vomiting. Musculoskeletal: Negative for myalgias. Skin: Negative for itching and rash. Neurological: Negative for dizziness and headaches. Objective Physical Exam Constitutional: General: She is not in acute distress. Appearance: She is not diaphoretic. HENT: Head: Normocephalic. Jaw: No trismus, tenderness, swelling or pain on movement. Right Ear: Tympanic membrane, ear silvia (more content not included)... [facility] Summary Purpose Family History No Family History Records Found Advance Directives No Advanced Directives Records Found Additional Source Comments INFORMATION SOURCE (unrecogn ized section and content) FOR RECORDS PERTAINING TO PATIENTS WHO ARE OR HAVE BEEN ENROLLED IN A CHEMICAL DEPENDENCY/SUBSTANCEABUSE PROGRAM, SOME INFORMATION MAY BE OMITTED. This clinical summary was aggregated from multiple sources. Caution should be exercised in using it in the provision of clinical care. This summary normalizes information from multiple sources, and as a consequence, information in this document may materially change the coding, format and clinical context of patient data. In addition, data may be omitted in some cases. CLINICAL DECISIONS SHOULD BE BASED ON THE PRIMARY CLINICAL RECORDS. [facility]. provides no warranty or guarantee of the accuracy or completeness of information in this document.
--- NOTE | 2023-03-26 18:31 | EX.ED.VIS.UR ---
HPI HPI - URI History of Present Illness Chief Complaint: Cold Sx Detail of Chief Complaint: Sinus infection and neck pain Onset/Context/Timing Onset: Days Context: Gradual Onset Timing: Continuous Quality: Tightness Location: Neck, right worse than left Worsened by: - (Nothing) Relieved by: - (Nothing) Associated Symptoms Associated Symptoms: Positive for Sinus Pressure, Myalgias, Shortness of Breath and Nonproductive cough; Negative for Nasal Congestion, Headache, Nausea, Vomiting, Diarrhea, Chest Pain, Hemoptysis or Productive Cough Narrative Narrative: Patient presents with neck pain and sinus infection that has been getting worse over the past several days. Patient states it is gradually getting worse. Patient admits to some tightness in her neck. Patient states it is worse on the right. Patient admits to some shortness of breath. Patient also admits to a cough but denies any sputum production. Patient denies any fevers or chills. Patient also admits to some pain in her back between her shoulder blades. Patient denies any chest pain. ROS ROS ED Constitutional Constitutional ED: Denies chills or fever(s) Eyes Eyes: Reports blurry vision; Denies diplopia ENT ENT ED: Denies rhinorrhea or sore throat Cardiovascular Cardiovascular: Denies chest pain or palpitations Respiratory/Chest Respiratory/Chest: Reports cough and dyspnea Gastrointestinal Gastrointestinal: Denies nausea or vomiting Genitourinary Genitourinary ED: Denies dysuria or hematuria Musculoskeletal Musculoskeletal: Reports back pain and neck pain Integumentary Denies abscess or rash Neurologic Neurologic: Denies headache(s) or weakness Allergic/Immunologic Allergic/Immunologic ED: Denies mouth swelling or urticaria [facility] Medical History (Updated 03/26/23 @ 20:[address] Daniel Burks, DO) Back pain Breast cancer Glaucoma Hypertension Kidney stone Home Medications paroxetine HCl 20 mg tablet 20 mg PO QHS 02/19/13 [History Last Taken Unknown] calcium carbonate 200 mg calcium (500 mg) chewable tablet 500 mg PO DAILY PRN PRN Indigestion 03/26/13 [History Last Taken Unknown] aspirin 81 mg chewable tablet 81 mg PO DAILY@0800 06/14/17 [History Last Taken Unknown] amlodipine 10 mg tablet 10 mg PO DAILY 07/15/20 [History Last Taken Unknown] azelastine 205.5 mcg (0.15 %) nasal spray 1 spray intranasal BID 05/18/21 [History Last Taken Unknown] cetirizine 10 mg capsule (Zyrtec) 10 mg PO DAILY 07/15/20 [History Last Taken Unknown] multivitamin 1 tab PO DAILY 07/15/20 [History Last Taken Unknown] potassium chloride 20 mEq tablet,extended release(part/cryst) (Klor-Con M) 20 meq PO BID 07/15/20 [History Last Taken Unknown] Allergy/AdvReac Type Severity Reaction Status Date / Time doxycycline calcium Allergy HEART Verified 03/26/23 18:10 [From Vibramycin] FLUTTERS doxycycline monohydrate Allergy Other Verified 03/26/23 18:10 [From Vibramycin] erythromycin base Allergy Other Verified 03/26/23 18:11 house dust Allergy SNEEZE/WHEE Verified 03/26/23 18:10 ZING mold Allergy SNEEZE/WHEE Verified 03/26/23 18:10 ZING tree and shrub pollen Allergy SNEEZE/WHEE Verified 03/26/23 18:10 ZING atorvastatin calcium AdvReac WEAK Verified 03/26/23 18:10 [From Lipitor] MUSCLES fluvastatin sodium AdvReac WEAK Verified 03/26/23 18:10 [From Lescol] MUSCLES metoprolol AdvReac DOESN'T Verified 03/26/23 18:10 WORK simvastatin [From Zocor] AdvReac MUSLCE Verified 03/26/23 18:10 WEAKNESS Family History (Updated 07/15/20 @ 10:50 by Ekta Laura, ADMINISTRATIVE SERVICES MANAGER-C) Brother Alcoholism Grandmother Diabetes Aunt Diabetes Mother Hypertension Grandfather CVA (cerebral vascular accident) Surgical History Hx of hysterectomy Hx of mastectomy Social History (Updated 03/26/23 @ 18:[address] Daniel Burks, DO) Smoking Status: Former smoker EXAM Physical Exam Const Vital Signs: 03/26/23 18:11 03/26/23 20:25 03/26/23 20:34 Temperature 97.8 F Temperature Source Temporal Pulse Rate 83 88 Respiratory Rate 16 20 H Respiratory Effort Normal Respiratory Pattern Normal Blood Pressure 186/74 H 172/79 H Blood Pressure Mean 111 110 Pulse Ox 96 96 Oxygen Delivery Method Room Air Room Air Positive well nourished and well developed General Appearance ED: well developed and NAD HEENT Reports moist mucous membranes Neck supple and no JVD Neck Narrative: There is tenderness over the cervical paraspinal muscles. There is no midline tenderness. There is no bony crepitance or step-off. Range of motion was limited in all motions of the cervical spine secondary to pain. Resp normal respiratory effort Auscultation: rhonchi throughout (There are occasional scattered rhonchi) Cardio Rate: regular rate Rhythm: regular rhythm GI non-tender and non-distended Palpation: soft Extremity full ROM General Extremety ED: Negative for tenderness Neuro oriented x3, CN's II-XII intact bilaterally and no sensory deficits noted Motor Exam: strength 5/5 throughout Psych mental status grossly normal MDM MDM MDM Narrative Medical decision making narrative: Differential diagnosis includes viral upper respiratory infection, bronchitis, pneumonia, and pharyngitis. Chest x-ray will be obtained to assess for pneumonia and pneumothorax. COVID-19, influenza, and RSV PCR will be obtained to assess for viral illness. Rapid strep will be obtained to assess for strep pharyngitis. Lab Data Lab results narrative: COVID-19 PCR was reviewed and was negative. Influenza A and influenza B PCR was reviewed and was negative. RSV PCR was reviewed and was negative. Rapid strep was reviewed and was negative. Radiography Chest X-Ray - ED: 2 View, Read by ED Physician and Read by Radiologist Diagnostic Testing: Clinical Impression(s) from Imaging Studies Chest X-Ray 03/26/23 19:20 IMPRESSION: No acute cardiopulmonary process. Electronically Signed: Angel Parra MD (Brooks) at 19:38 EST Reading Location ID and State: [address] [place] [address] , Service support , PA and lateral chest x-ray was obtained. There are 2 views. On my independent interpretation, lung altamirano are clear. There is normal cardiac silhouette. Bony thorax is normal. There is no acute process noted. Radiologist also interpreted the x-ray and agrees. Treatment and Re-Evaluation Narrative: Patient was advised of her findings. Patient was advised that this is most likely a viral upper respiratory infection. Patient was instructed to drink plenty of fluids. Patient was instructed to use [id number]-yzk-ltyjwom decongestants as needed. Patient was instructed to follow-up with her primary care physician in 5 to 7 days. Patient was instructed to return if worse in any way. Patient understood and was agreeable with the plan. All questions were answered. Discharge Plan Triage Chief Complaint: Cold Sx Other Complaint: Other, Pain/Inj ED Provider: Daniel Burks Dx/Rx/DC Orders Clinical Impression: Viral upper respiratory infection, Hypertension Instructions: ED URI, Viral, No Abx (Adult) Prescriptions: No Action amlodipine 10 mg tablet 10 mg PO DAILY multivitamin Tablet 1 tab PO DAILY azelastine 205.5 mcg (0.15 %) spray,non-aerosol 1 spray intranasal BID Rx Instructions: administer into each nostril Zyrtec 10 mg capsule 10 mg PO DAILY paroxetine HCl 20 MG tablet 20 mg PO QHS Patient Comments: MOOD potassium chloride [Klor-Con M20] 20 mEq tablet,ER particles/crystals 20 meq PO BID Patient Comments: POTASSIUM SUPPLEMENT calcium carbonate 500 MG tablet 500 mg PO DAILY PRN PRN (Reason: Indigestion) Patient Comments: HEARTBURN aspirin 81 MG tablet,chewable 81 mg PO DAILY@0800 Primary Care Provider: Anna Baez Referrals: Anna Baez, DO [Primary Care Provider] - 5-7 Days Disposition Disposition: Home, Self Care
--- NOTE | 2023-03-26 19:20 | RAD_ITS ---
STUDY: X-RAY CHEST REASON FOR EXAM: Female, 77 years old. Cough TECHNIQUE: PA and lateral views of the chest. COMPARISON: None. FINDINGS: Surgical clips overlie the right chest. The lungs are clear and expanded. There is no demonstrated pleural abnormality. Normal size heart. Normal mediastinum and soraida. Normal visualized pulmonary arteries. There is atherosclerotic calcification of the aortic arch with tortuosity. Normal visualized thoracic spine. Normal visualized ribs, clavicles, and shoulders. There is no demonstrated abnormality of the visualized soft tissue structures of the upper abdomen. RAD/Chest PA and Lateral IMPRESSION: No acute cardiopulmonary process. Electronically Signed: Angel Parra MD ([place]oks) at 19:38 EST ,
[2023-03-26 20:34] VITALS: BP 172/79; PULSE 88; RESP 20; O2SAT 96
== END 2023-03-26 20:47 | disposition home or self-care (01) ==
PROVIDERS: Emergency Provider Emergency Medicine; PCP Family Medicine; Visit Provider Emergency Medicine
DX: J06.9 Acute upper respiratory infection, unspecified (principal); I10 Essential (primary) hypertension; Z87.891 Personal history of nicotine dependence; Z85.3 Personal history of malignant neoplasm of breast; Z79.899 Other long term (current) drug therapy; Z79.82 Long term (current) use of aspirin; Z90.710 Acquired absence of both cervix and uterus; Z90.10 Acquired absence of unspecified breast and nipple
CPT/HCPCS: 71046; 87631; 87651; 99282

== ENCOUNTER → 2023-04-20 | Outpatient (CLI) | payer MEDICARE, SELFPAY ==
--- NOTE | 2023-04-20 15:24 | BD_ITS ---
STUDY: DUAL ENERGY X-RAY ABSORPTIOMETRY / DXA REASON FOR EXAM: Female, 77 years old. [id number] TECHNIQUE: Bone Mineral Density (BMD) measurements of lumbar spine and bilateral hips were obtained. COMPARISON: None. FINDINGS: Lumbar Spine (L1-L4): g/cm2 (1.137) / T-score (0.8) / Z-score (3.3) Findings are suggestive of normal bone density with a low fracture risk. Left Femur Total: g/cm2 (0.868) / T-score (-0.6) / Z-score (1.2) Left Femoral Neck: g/cm2 (0.560) / T-score (-2.6) / Z-score (-0.5) Right Femur Total: g/cm2 (0.898) / T-score (-0.4) / Z-score (1.5) Right Femoral Neck: g/cm2 (0.600) / T-score (-2.2) / Z-score (-0.1) BD/Dexa Bone Density Study IMPRESSION: The patient is considered osteoporotic as outlined below according to World Kieran Organization (WHO) criteria with a high fracture risk. Reference Information: The T-score is the number of standard deviations above or below the standard which is normal for young adults at their peak bone mineral density. The World Health Organization (WHO) interprets the T-scores as follows: Above -1 Normal bone density Between -1 and -2.5 Osteopenia Equal to / or below -2.5 Osteoporosis As a practical clinical guideline, osteopenia may be graded as follows: Mild -1 through -1.5 Moderate -1.6 through -2.0 Severe -2.1 through -2.4 The Z-score is the number of standard deviations above or below age-matched controls. A Z-score of less than -1.5 would be considered abnormal. References: 1. NIH Osteoporosis and Related Bone Diseases www osteo.org 2. International Society for Clinical Densitometry www iscd.org 3. National Osteoporosis Foundation www nof.org Electronically Signed: Ashok Roblero MD at 15:14 EST ,
== END | disposition home or self-care (01) ==
LOC: OPBD 15:10
PROVIDERS: PCP Family Medicine; Referring Provider Family Medicine; Visit Provider Family Medicine
DX: Z78.0 Asymptomatic menopausal state (principal); Z13.820 Encounter for screening for osteoporosis
CPT/HCPCS: 77080

== ENCOUNTER → 2023-06-17 | Outpatient (CLI) | payer MEDICARE, SELFPAY ==
[2023-06-17 15:30] LABS: Absolute Lymphocyte Count 1.93 X10^3/uL (0.83-4.51); Absolute Neutrophil Count 4.5 X10^3/uL (2.0-7.7); Basophil# 0.08 X10^3/uL; Basophil% 1.1 % (0-1); Eosinophil# 0.13 X10^3/uL; Eosinophils% 1.8 % (0-5); Hematocrit 49.6 % (37-47); Hemoglobin 16.1 g/dL (12.0-15.0); Lymphocyte # 1.93 X10^3/ul (0.83-4.51); Lymphocyte % 26.6 % (19-41); Mean Corp Hgb Conc 32.5 g/dL (32-36); Mean Corpuscular Hgb 28.2 pg (27.0-32.0); Mean Corpuscular Volume 86.9 fL (81-99); Mean Platelet Vol. 10.9 fl (6.2-12.0); Monocyte# 0.58 X10^3/uL; NRBC Flagged by Analyzer 0 % (0-5); Neutrophil # 4.52 X10^3/uL (2.7-7.7); Neutrophil % 62.2 % (47-70); Platelet Count 340 K/mm3 (150-450); RBC Distribution Width CV 13.2 % (11.6-14.6); Red Blood Count 5.71 M/mm3 (4.2-5.4); White Blood Count 7.3 K/mm3 (4.4-11.0)
[2023-06-17 15:48] LABS: AST(SGOT) 17 U/L (15-37); Alanine Aminotransfer ALT/SGPT 22 U/L (13-56); Albumin, Serum 3.9 g/dL (3.2-5.0); Alkaline Phosphatase 78 U/L (45-117); Anion Gap 8 (5-15); BUN 17 mg/dL (7-18); BUN/Creat Ratio 18.5 RATIO (10-20); Calcium,Total 9.6 mg/dL (8.5-10.1); Chloride 106 mmol/L (98-107); Cholesterol 309 mg/dL (200); Creatinine, Serum 0.92 mg/dL (0.55-1.02); EST Glomerular Filtration Rate 63 mL/min (>60); Est Glom Filt Rate - Afr Amer 77 mL/min (>60); Globulin 3.8 g/dL (2.2-4.2); Glucose 110 mg/dL (74-106); High Density Lipoprotein 48 mg/dL; Potassium 3.6 mmol/L (3.5-5.1); Protein, Total 7.7 g/dL (6.4-8.2); Sodium Level 142 mmol/L (136-145); Triglycerides 163 mg/dL; Very Low Density Lipoprotein 33 mg/dL (5-40)
[2023-06-17 15:51] LABS: Hemoglobin A1c 5.6 % (3.8-5.6)
[2023-06-17 15:54] LABS: Vitamin D,25 Hydroxy 28.1 ng/mL
== END | disposition home or self-care (01) ==
LOC: BIMLAB 11:47
PROVIDERS: PCP Internal Medicine; Referring Provider Internal Medicine; Visit Provider Internal Medicine
DX: I10 Essential (primary) hypertension (principal); M81.0 Age-related osteoporosis without current pathological fracture; R73.03 Prediabetes
CPT/HCPCS: 36415; 80053; 80061; 82306; 83036; 85025

== ENCOUNTER → 2023-09-28 | Outpatient (CLI) | payer MEDICARE, SELFPAY ==
--- NOTE | 2023-09-28 14:01 | BI_ITS ---
MAMMOGRAPHY - UNILATERAL SCREENING: LEFT BREAST REASON FOR EXAM: Female, 77 years old. Routine annual screening examination (unilateral). PERTINENT HISTORY: Personal history of breast cancer. Prior right mastectomy. TECHNIQUE: Digital unilateral breast sergio (3D mammographic acquisition) in the CC and MLO projections. 2-D mediolateral oblique (MLO) and craniocaudad (CC) views of both breasts were obtained. CAD: Full Field Digital Mammography with Computer Added Detection was performed. COMPARISON: Comparison is made with prior study of June 01, 2021 and September 08, 2018. FINDINGS: Breast Composition: There are scattered areas of fibroglandular density. There are no dominant masses or suspicious calcifications. No other significant abnormalities are identified. There has been no significant change since the prior study. BI/SCREEN MAMM (CAD) W/SERGIO UNI L IMPRESSION: Stable unilateral screening mammogram. Yearly follow-up mammogram recommended. (A) ASSESSMENT CATEGORY: BIRADS Category 1: Negative. A letter regarding these results will be sent to the patient by the facility within 30 days. Approximately 10% of breast cancers are not detected by mammography. A normal mammogram should not delay biopsy of a clinically suspicious abnormality. [id number] Electronically Signed: Ashok Roblero MD at 14:48 EDT ,
== END | disposition home or self-care (01) ==
LOC: OPBI 14:00
PROVIDERS: PCP Internal Medicine; Referring Provider Internal Medicine; Visit Provider Internal Medicine
DX: Z12.31 Encounter for screening mammogram for malignant neoplasm of breast (principal); Z85.3 Personal history of malignant neoplasm of breast; Z90.11 Acquired absence of right breast and nipple
CPT/HCPCS: 77063; 77067

== ENCOUNTER 2023-10-24 19:14 | Emergency (ER) | payer MEDICARE, SELFPAY ==
[2023-10-24 19:18] VITALS: BP 200/71; PULSE 73; RESP 18; TEMP 36.3; O2SAT 96; BMI 31.6
--- NOTE | 2023-10-24 21:27 | CT_ITS ---
INDICATION: dizziness EXAMINATION: CT BRAIN - CT Head or Brain W/O Contrast Injection TECHNIQUE: Multiple axial images were obtained of the head without intravenous contrast. A radiation dose optimization technique was used for this scan. IV Contrast dosage and agent: None. COMPARISON: None FINDINGS: BRAIN PARENCHYMA: No intra- or extra-axial hemorrhage. No evidence of acute infarct. 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 No intracranial mass or mass effect. Mild periventricular and subcortical white matter hypodense chronic small vessel white matter ischemic change. There is preservation of the gamboa/white matter interface. Posterior fossa structures are unremarkable. Carotid and vertebral atherosclerosis. CSF SPACES: Cerebral volume appropriate for age. No hydrocephalus. Basal cisterns are patent. CALVARIUM, SKULL BASE, PARANASAL SINUSES AND MASTOID AIR CELLS: No acute osseous finding. Mild scattered acute paransal sinus mucoperisteal thickening, most prominent in the right maxillary sinus. Mastoid air cells are clear. ORBITS: Both globes, extraocular muscles, optic nerves and retrobulbar fat appear unremarkable. ASPECTS Score for Acute Strokes: 10 CT/Brain/Head without Contrast IMPRESSION: No CT evidence of acute intracranial hemorrhage or injury. 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 Mild acute sinus disease. Electronically Signed: Shane Umanzor MD at 23:39 EDT ,
--- NOTE | 2023-10-24 21:29 | EX.ED.DYSGE1 ---
HPI History of Present Illness Chief Complaint: Dizziness Informant: patient Narrative Narrative: Presents by private vehicle drove her self here for dizziness unstable gait for last 2 days. States spinning sensations. 6 days ago, patient diagnosed with [facility] at [facility]. States was just not feeling well, tired and had congestion. No loss of taste or smell. She had 1 vaccination in the past no history of COVID in the past. History of hypertension osteoporosis. 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 Denies any loss of taste or smell. Denies vomiting or diarrhea. Prior similar symptoms: No PFSH PFS Medical History Blind right eye Carpal tunnel syndrome Allergies Kidney stone Hypertension Glaucoma Breast cancer Back pain Home Medications ?Medication ?Instructions ?Recorded ?Last Taken ?Type paroxetine HCl 20 mg tablet 20 mg PO QHS 02/19/13 Unknown History calcium carbonate 500 mg PO DAILY PRN PRN Indigestion 03/26/13 Unknown History aspirin 81 mg chewable tablet 81 mg PO DAILY@0800 06/14/17 Unknown History amlodipine 10 mg tablet 10 mg PO DAILY 07/15/20 Unknown History cetirizine 10 mg capsule (Zyrtec) 10 mg PO DAILY 07/15/20 Unknown History multivitamin 1 tab PO DAILY 07/15/20 Unknown History alendronate 70 mg tablet (Fosamax) 70 mg PO QWEEK #12 tabs 06/19/23 Unknown Rx ezetimibe 10 mg tablet (Zetia) 10 mg PO DAILY #30 tabs 06/20/23 Unknown Rx azelastine 205.5 mcg (0.15 %) 1 spray intranasal BID #30 mL 08/15/23 Unknown Rx nasal spray potassium chloride 20 mEq 20 meq PO BID #60 TABLETS 09/19/23 Unknown Rx tablet,extended release(part/cryst) denosumab 60 mg/mL subcutaneous 60 mg subcut [id number] #1 mL 10/07/23 Unknown Rx syringe (Prolia) benzonatate 100 mg capsule 100 mg PO TID PRN cough #20 caps 10/18/23 Unknown Rx dexamethasone 6 mg tablet 6 mg PO DAILY #5 tabs 10/18/23 Unknown Rx meclizine 12.5 mg tablet 12.5 mg PO TID PRN dizziness #10 10/24/23 Unknown Rx tabs Allergy/AdvReac Type Severity Reaction Status Date / Time doxycycline calcium (From Allergy HEART Verified 10/24/23 19:17 Vibramycin) FLUTTERS doxycycline monohydrate Allergy Other Verified 10/24/23 19:17 (From Vibramycin) erythromycin base Allergy Other Verified 10/24/23 19:17 house dust Allergy SNEEZE/WHEE Verified 10/24/23 19:17 ZING mold Allergy SNEEZE/WHEE Verified 10/24/23 19:17 ZING tree and shrub pollen Allergy SNEEZE/WHEE Verified 10/24/23 19:17 ZING atorvastatin calcium (From AdvReac WEAK Verified 10/24/23 19:17 Lipitor) MUSCLES fluvastatin sodium (From AdvReac WEAK Verified 10/24/23 19:17 Lescol) MUSCLES metoprolol AdvReac DOESN'T Verified 10/24/23 19:17 WORK simvastatin (From Zocor) AdvReac MUSLCE Verified 10/24/23 19:17 WEAKNESS Family History Brother Alcoholism Grandmother Alcoholism Aunt Diabetes Mother Hypertension Osteoporosis Grandfather CVA (cerebral vascular accident) Grandfather Diabetes Son Blood clot in vein Surgical History History of radiofrequency ablation (RFA) of nerve of cervical spine Status post laser cataract surgery of right eye Hx of mastectomy Hx of hysterectomy Social History household members: none housing: house current occupational status: retired current occupation: worked/managed at [employer] pets and animals: Yes pets and animals: cat(s) and dog(s) Smoking Status: Current some day smoker tobacco type: e-cigarettes Electronic Cigarette Use: with nicotine alcohol intake: never substance use type: does not use what type of physical activity do you participate in: none seatbelt use: always do you feel safe at home: Yes ROS ROS ED Constitutional Constitutional ED: Denies chills, fever(s) or sweats Eyes Eyes: Denies change in vision ENT ENT ED: Denies dysphagia or sore throat Cardiovascular Cardiovascular: Denies chest pain, leg edema, palpitations or racing heartbeat Respiratory/Chest Respiratory/Chest: Denies cough, dyspnea or dyspnea on exertion Gastrointestinal Gastrointestinal: Denies abdominal pain, diarrhea, nausea or vomiting Genitourinary Genitourinary ED: Denies dysuria, hematuria or urinary frequency Musculoskeletal Musculoskeletal: Denies back pain, extremity pain or neck pain Integumentary Denies rash or wounds Neurologic Neurologic: Reports other Details: Dizziness ; Denies headache(s), paresthesias or weakness EXAM Physical Exam Const Vital Signs: 10/24/23 19:18 10/24/23 22:04 Temperature 97.4 F L Temperature Source Temporal Pulse Rate 73 76 Respiratory Rate 18 18 Blood Pressure 200/71 H 162/101 H Blood Pressure Mean 114 121 Pulse Ox 96 Oxygen Delivery Method Room Air Positive well nourished and well developed General Appearance ED: well developed and NAD HEENT Reports moist mucous membranes normocephalic and atraumatic Eyes EOMs intact bilaterally and conjunctivae normal Eyes Narrative: Noticed diagnosed him blind in the right eye with light. Pupil fixed on the right. General Eye ED: Yes normal appearance of both eyes Neck no lymphadenopathy and supple General: Negative for tenderness Chest Wall Chest: Negative for tenderness Resp normal respiratory effort and normal air movement Effort and Inspection: symmetric chest movement; Negative for respiratory distress Cardio regular rate, regular rhythm and no murmurs Peripheral Pulses: pulses 2+ throughout GI normal to inspection, nondistended, normoactive bowel sounds and non-tender Palpation: Negative for guarding or rebound tenderness present Back/Spine no CVA tenderness and no thoracic nor lumbar tenderness Extremity normal to inspection General Extremety ED: Negative for edema or tenderness General Extremity: Negative for edema Neuro oriented x3, CN's II-XII intact bilaterally and no sensory deficits noted Neuro Narrative: No focal deficits on exam. Sensorium / Orientation: awake and alert Skin no rashes or lesions noted and no wounds MDM MDM MDM Narrative Medical decision making narrative: Interventions / MDM: Differential diagnosis: COVID-19 infection, vertigo Diagnosis considered but do not suspect: N/A My EKG interpretation: N/A Imaging independently reviewed and interpreted by myself: CT brain: Previous infarct noted right parietal area. No intracranial hemorrhage. No acute process. External documents reviewed: N/A Test considered but not ordered:N/A ED course: Presenting with vertigo type symptoms of dizziness. No focal deficits on exam. Chronic blindness right eye. Blood pressure elevated to 1/71. She of hypertension. Denies headache. Will check head CT, basic labs, will give fluids and IV Reglan. Will reevaluate. 2330 clinically feeling better.: Labs white count 14 sodium 142 potassium 3.1 creatinine 0.84. Awaiting final read of CT scan however noted old area of infarct . She is able to ambulate. Will plan for prescription Antivert to use as needed. Note blood pressure improving 162/101 without any interventions. Outpatient follow-up with return precautions. Re-evaluation: stable Disposition discussed with patient/family/significant other: Patient Case discussed with consulting clinician: N/A This note was generated with [employer] dictation software. It may contain incorrect words, spelling, and punctuation that were not noted in checking the note before signing. Lab Data Attestation: I reviewed the patient's lab results. Labs: Laboratory Results - last 24 hr 10/24/23 21:54 WBC 14.1 H RBC 5.69 H Hgb 15.7 H Hct 47.4 H MCV 83.3 MCH 27.6 MCHC 33.1 RDW Std Deviation 40.3 RDW Coeff of Federico 13.3 Plt Count 426 MPV 10.3 Immature Gran % (Auto) 1.300 H Neut % (Auto) 64.9 Lymph % (Auto) 21.6 [place] % (Auto) 10.1 H Eos % (Auto) 1.6 Baso % (Auto) 0.5 Absolute Neuts (auto) 9.2 H Absolute Lymphs (auto) 3.05 Nucleated RBC % 0 Sodium 142 Potassium 3.1 L Chloride 107 Carbon Dioxide 28.0 Anion Gap 7 BUN 21 H Creatinine 0.84 Estim Creat Clear Calc 57.41 Est GFR (MDRD) Af Amer 84 Est GFR (MDRD) Non-Af 69 BUN/Creatinine Ratio 24.9 H Glucose 100 Calcium 9.1 Radiography Diagnostic Testing: Clinical Impression(s) from Imaging Studies Brain CT 10/24/23 21:27 IMPRESSION: No CT evidence of acute intracranial hemorrhage or injury. 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 Mild acute sinus disease. Electronically Signed: Shane Umanzor MD at 23:39 EDT , Discharge Plan Triage Chief Complaint: Dizziness ED Provider: Abdi Fernandez Dx/Rx/DC Orders Clinical Impression: COVID-19 virus infection, Vertigo, Hypertension Instructions: Coronavirus Disease 2019 (COVID-19): Caring for Yourself or Others, ED Vertigo, Unspecified Prescriptions: New meclizine 12.5 mg tablet 12.5 mg PO TID PRN (Reason: dizziness) Qty: 10 0RF No Action amlodipine 10 mg tablet 10 mg PO DAILY multivitamin Tablet 1 tab PO DAILY Zyrtec 10 mg capsule 10 mg PO DAILY dexamethasone 6 mg tablet 6 mg PO DAILY Qty: 5 0RF benzonatate 100 mg capsule 100 mg PO TID PRN (Reason: cough) Qty: 20 0RF paroxetine HCl 20 MG tablet 20 mg PO QHS Patient Comments: MOOD calcium carbonate 500 MG tablet 500 mg PO DAILY PRN PRN (Reason: Indigestion) Patient Comments: HEARTBURN aspirin 81 MG tablet,chewable 81 mg PO DAILY@0800 alendronate [Fosamax] 70 mg tablet 70 mg PO QWEEK Qty: 12 0RF ezetimibe [Zetia] 10 mg tablet 10 mg PO DAILY Qty: 30 2RF azelastine 205.5 mcg (0.15 %) spray,non-aerosol 1 spray intranasal BID Qty: 30 1RF Rx Instructions: administer into each nostril potassium chloride 20 mEq tablet,ER particles/crystals 20 meq PO BID Qty: 60 2RF Prolia 60 mg/mL syringe 60 mg subcut [id number] Qty: 1 0RF Primary Care Provider: Sera Bowser Referrals: Sera Bowser MD [Primary Care Provider] - 3-5 Days Print Language: Malagasy Disposition Disposition: Home, Self Care
[2023-10-24 22:02] LABS: Absolute Lymphocyte Count 3.05 X10^3/uL (0.83-4.51); Absolute Neutrophil Count 9.2 X10^3/uL (2.0-7.7); Basophil# 0.07 X10^3/uL; Basophil% 0.5 % (0-1); Eosinophil# 0.22 X10^3/uL; Eosinophils% 1.6 % (0-5); Hematocrit 47.4 % (37-47); Hemoglobin 15.7 g/dL (12.0-15.0); Lymphocyte # 3.05 X10^3/ul (0.83-4.51); Lymphocyte % 21.6 % (19-41); Mean Corp Hgb Conc 33.1 g/dL (32-36); Mean Corpuscular Hgb 27.6 pg (27.0-32.0); Mean Corpuscular Volume 83.3 fL (81-99); Mean Platelet Vol. 10.3 fl (6.2-12.0); Monocyte# 1.42 X10^3/uL; Monocyte% 10.1 % (0-10); NRBC Flagged by Analyzer 0 % (0-5); Neutrophil # 9.15 X10^3/uL (2.7-7.7); Neutrophil % 64.9 % (47-70); Platelet Count 426 K/mm3 (150-450); RBC Distribution Width CV 13.3 % (11.6-14.6); RBC Distribution Width SD 40.3 fl (35.1-43.9); Red Blood Count 5.69 M/mm3 (4.2-5.4); White Blood Count 14.1 K/mm3 (4.4-11.0)
[2023-10-24] MEDS: Metoclopramide 10 MG/2 ML Vial 5 MG IV (22:03)
[2023-10-24] MEDS: 0.9% Normal Saline (500mL Bag) 500 ML 999 ML IV (22:03)
[2023-10-24 22:04] VITALS: BP 162/101; PULSE 76; RESP 18
[2023-10-24 22:20] LABS: Anion Gap 7 (5-15); BUN 21 mg/dL (7-18); BUN/Creat Ratio 24.9 RATIO (10-20); Calcium,Total 9.1 mg/dL (8.5-10.1); Chloride 107 mmol/L (98-107); Creatinine, Serum 0.84 mg/dL (0.55-1.02); EST Glomerular Filtration Rate 69 mL/min (>60); Est Glom Filt Rate - Afr Amer 84 mL/min (>60); Estimated Creatinine Clearance 57.41 ml/min; Glucose 100 mg/dL (74-106); Potassium 3.1 mmol/L (3.5-5.1); Sodium Level 142 mmol/L (136-145)
--- NOTE | 2023-10-24 23:09 | ED.RN ---
patient requesting paper pants. pt states she did not make it to the bathroom in time.
[2023-10-24 23:59] VITALS: PULSE 66; RESP 18; TEMP 36.6; O2SAT 97
== END 2023-10-25 00:02 | disposition home or self-care (01) ==
PROVIDERS: Emergency Provider Emergency Medicine; PCP Internal Medicine; Visit Provider Emergency Medicine
DX: U07.1 COVID-19 (principal); I10 Essential (primary) hypertension; R42 Dizziness and giddiness; I69.398 Other sequelae of cerebral infarction; Z85.3 Personal history of malignant neoplasm of breast; Z79.82 Long term (current) use of aspirin; M81.0 Age-related osteoporosis without current pathological fracture; Z79.899 Other long term (current) drug therapy; Z90.10 Acquired absence of unspecified breast and nipple; F17.290 Nicotine dependence, other tobacco product, uncomplicated
CPT/HCPCS: 70450; 80048; 85025; 96360; 96361; 96374; 99284; J7040; A4216

== ENCOUNTER → 2023-11-09 | Outpatient (CLI) | payer MEDICARE, SELFPAY ==
[2023-11-09 17:01] LABS: ALB/GLOB Ratio 0.9 RATIO (0.9-2.4); AST(SGOT) 15 U/L (15-37); Alanine Aminotransfer ALT/SGPT 18 U/L (13-56); Albumin, Serum 3.5 g/dL (3.2-5.0); Alkaline Phosphatase 78 U/L (45-117); Anion Gap 9 (5-15); BUN 13 mg/dL (7-18); BUN/Creat Ratio 13.9 RATIO (10-20); Calcium,Total 9.7 mg/dL (8.5-10.1); Chloride 107 mmol/L (98-107); Creatinine, Serum 0.94 mg/dL (0.55-1.02); EST Glomerular Filtration Rate 62 mL/min (>60); Est Glom Filt Rate - Afr Amer 75 mL/min (>60); Globulin 3.7 g/dL (2.2-4.2); Glucose 96 mg/dL (74-106); Potassium 3.3 mmol/L (3.5-5.1); Protein, Total 7.2 g/dL (6.4-8.2); Sodium Level 141 mmol/L (136-145)
== END | disposition home or self-care (01) ==
LOC: BIMLAB 14:23
PROVIDERS: PCP Internal Medicine; Referring Provider Physician Assistant; Visit Provider Physician Assistant
DX: I10 Essential (primary) hypertension (principal)
CPT/HCPCS: 36415; 80053

== ENCOUNTER → 2024-06-28 | Outpatient (CLI) | payer MEDICARE, SELFPAY ==
[2024-06-28 16:51] LABS: Absolute Lymphocyte Count 2.43 X10^3/uL (0.83-4.51); Absolute Neutrophil Count 6.4 X10^3/uL (2.0-7.7); Eosinophil# 0.14 X10^3/uL; Eosinophils% 1.4 % (0-5); Hematocrit 44.5 % (37-47); Lymphocyte # 2.43 X10^3/ul (0.83-4.51); Lymphocyte % 24.5 % (19-41); Mean Corp Hgb Conc 33.7 g/dL (32-36); Mean Corpuscular Hgb 28.8 pg (27.0-32.0); Mean Corpuscular Volume 85.4 fL (81-99); Mean Platelet Vol. 10.5 fl (6.2-12.0); Monocyte# 0.82 X10^3/uL; Monocyte% 8.3 % (0-10); NRBC Flagged by Analyzer 0 % (0-5); Neutrophil # 6.39 X10^3/uL (2.7-7.7); Neutrophil % 64.3 % (47-70); Platelet Count 336 K/mm3 (150-450); RBC Distribution Width CV 13.1 % (11.6-14.6); RBC Distribution Width SD 40.8 fl (35.1-43.9); Red Blood Count 5.21 M/mm3 (4.2-5.4); White Blood Count 9.9 K/mm3 (4.4-11.0)
[2024-06-28 18:01] LABS: ALB/GLOB Ratio 1.3 RATIO (0.9-2.4); AST(SGOT) 19 U/L (<=31); Alanine Aminotransfer ALT/SGPT 9 U/L (<=34); Albumin, Serum 4.3 g/dL (3.4-4.8); Alkaline Phosphatase 64 U/L (35-104); Anion Gap 13 (5-15); BUN 15 mg/dL (4-19); Calcium,Total 9.8 mg/dL (7.6-11.0); Carbon Dioxide 24.3 mmol/L (21.0-32.0); Chloride 103 mmol/L (98-108); Cholesterol 315 mg/dL (<=200); Creatinine, Serum 1.06 mg/dL (0.70-1.20); EST Glomerular Filtration Rate 54 (>60); Globulin 3.3 g/dL (2.2-4.2); Glucose 90 mg/dL (70-99); High Density Lipoprotein 45 mg/dL; Low Density Lipoprotein Calc. 233 mg/dL; Protein, Total 7.6 g/dL (5.9-8.4); Sodium Level 140 mmol/L (133-145); Total Bilirubin 0.36 mg/dL (0.00-1.30); Triglycerides 188 mg/dL; Very Low Density Lipoprotein 38 mg/dL (5-40); cholesterol:hdl ratio screen 7.03
== END | disposition home or self-care (01) ==
LOC: BIMLAB 15:00
PROVIDERS: PCP Internal Medicine; Referring Provider Internal Medicine; Visit Provider Internal Medicine
DX: I10 Essential (primary) hypertension (principal); E78.2 Mixed hyperlipidemia; M81.0 Age-related osteoporosis without current pathological fracture
CPT/HCPCS: 36415; 80053; 80061; 82306; 85025